=== PATIENT | female | born 1945 | race African-American/Black ===

== ENCOUNTER 2016-12-04 09:47 | Inpatient (IN) ==
[2016-12-04] MEDS ORDERED: SODIUM CHLORIDE 0.9% 1,000 ML IV STA (10:07)
[2016-12-04] MEDS ORDERED: HYDROmorphone 2 MG/1 ML VIAL IV STA (10:07)
[2016-12-04] MEDS ORDERED: ONDANSETRON 4 MG/2 ML VIAL IV STA ×2 (10:07→14:01)
--- NOTE | 2016-12-04 10:15 | Emergency Department Note ---
Trish Alford Hilary, am scribing for, and in the presence of, Sunil Smith MD 10: 12. Sarah Alford James D, MD, personally performed the services described in this documentation, ascribed by Bronwyn Chambers in my presence, and it is both accurate and complete . Arrival - Arrival Chief Complaint: Abdominal / Flank Pain Stated Complaint: stomach pain-severe ED Nursing Triage Note: Pt c/o mid abd cramping since friday, states worse after eating hamburger and moroccan fries yesterday. +n/v. Denies diarrhea. Last BM this morning was normal Mode of Arrival: Wheelchair Limitations: No Limitations Source: Patient, RN Notes Reviewed Time Seen by Provider: 12/04/16 10:03 - History of Present Illness HPI Narrative: Pt is a 71y/o black female presenting to the ED with c/o abdominal cramping which onset 2 days ago. Pt confirms nausea, vomiting and abdominal pain but denies diarrhea or dysuria. She states that it worsened after eating a hamburger and moroccan fries yesterday. Pt has had a bowel obstruction in the past and has PMHx of IDDM and HTN. No other complaints or problems stated in the ED. Patient admits to flatus this morning prior to coming to the ER but has not had any during her stay in the emergency department. Onset (ago): day(s) Consistency: constant Severity: moderate Severity scale (1-10): 4 Quality: cramping Allergies/Adverse Reactions: Allergies Allergy/AdvReac Type Severity Reaction Status Date / Time No Known Allergies Allergy Verified 12/04/16 09:51 Home Medications: Home Medications Medication Instructions Recorded Confirmed Type ALPRAZolam [Xanax] 0.5 mg PO BID PRN 12/02/15 12/04/16 History Famotidine Tab [Pepcid Tab] 40 mg PO BEDTIME 12/02/15 12/04/16 History Linagliptin [Tradjenta] 5 mg PO DAILY 12/02/15 12/04/16 History Losartan/Hydrochlorothiazide 1 each PO DAILY 12/02/15 12/04/16 History [Hyzaar 100-25 Tablet] Metformin HCl 1,000 mg PO BID 12/02/15 12/04/16 History Omeprazole 40 mg PO DAILY 12/02/15 12/04/16 History Simvastatin [Zocor] 20 mg PO BEDTIME 12/02/15 12/04/16 History Topiramate [Topamax] 25 mg PO TID 12/02/15 12/04/16 History Gabapentin 300 mg PO BID 12/04/16 12/04/16 History glipiZIDE [Glipizide ER] 10 mg PO BID 12/04/16 12/04/16 History Review of System - Review of System 12 point system: reviewed and no additional remarkable complaints except as stated - Review of System Constitutional: Present: fever Cardiovascular: Absent: chest pain Gastrointestinal: Present: abdominal pain, nausea, vomiting. Absent: diarrhea Genitourinary female: Absent: dysuria Musculoskeletal: Absent: back pain Medical,Surgical,& Family Hx - Medical History Cardio: History of: Hypertension Endocrine: History of: Diabetes Mellitus (NIDDM) - Social History Smoking Status: Never smoker Frequency of Alcohol Use: None Type of Drug Use: None Exam Physical Examination: GENERAL: This is a well-nourished, well-developed black female in no apparent distress. VITAL SIGNS: Temperature: 99.9 Pulse: 77 Respiratory: 16 Blood Pressure: 146/90 O2SAT: 98 HEENT: Head is normocephalic and atraumatic. Pupils are equally round and reactive to light. Extraocular movement are intact. Oropharynx is benign with moist mucous membranes. NECK: Neck is soft and supple without tenderness. There are no masses. There is no lymphadenopathy. LUNGS: Lungs are clear to auscultation bilaterally. Chest rises symmetrically. There is no chest wall tenderness. CV: Heart is regular rate and rhythm without murmurs, rubs, or gallops. ABDOMEN:Abdomen is soft, tender to palpation in the lower quadrants bilaterally. There are no abnormal masses palpated. There is no organomegaly. Bowel sounds are present and active. SKIN: Skin is warm and dry. No rash. EXTREMITIES: Patient has full range of motion without tenderness. There is no pedal edema. NEUROLOGIC: Awake, alert, and oriented x4. Cranial nerves II through XII are grossly intact. There are no motorsensory deficits. PSYCHIATRIC: Normal affect. Normal mood. Vital Signs: Vital Signs Temperature 99.9 F H 12/04/16 09:48 Pulse Rate 55 L 12/04/16 12:45 Respiratory Rate 18 12/04/16 12:45 Blood Pressure 184/78 12/04/16 12:45 O2 Sat by Pulse Oximetry 96 12/04/16 12:45 Course - Consultations Consultation #1: Discussed with Dr. Bety FOFANA. Patient has what appears to be a small bowel obstruction. Patient will be admitted to his service. Initial orders written for him. He will assume care of the patient upon patient's arrival to the [facility]. Time: 12:51 Results - Labs CBC & BMP: 12/04/16 10:26 12/04/16 10:26 Lab Results: I have reviewed the patients labs Labs: Laboratory Tests 12/04/16 10:26 WBC 9.3 RBC 5.08 Hgb 14.0 Hct 42.7 MCV 84.1 L Neut % (Auto) 92.2 H Lymph % (Auto) 5.8 L [place] % (Auto) 1.4 L Neut # (Auto) 8.6 H Lymph # (Auto) 0.5 L [place] # (Auto) 0.1 L Laboratory Tests 12/04/16 12/04/16 12/04/16 10:26 10:26 11:14 Segmented Neutrophils 93 H Lymphocytes 5 L Potassium 3.2 L Glucose 214 H Total Protein 8.4 H Globulin 4.3 H Albumin/Globulin Ratio 0.9 L Urine Color Yellow Urine Appearance Slightly hazy Urine Urobilinogen < 2.0 H - EKG EKG results: interpreted by ERMD - Impressions EKG: Normal sinus rhythm with rate of 67, nonspecific ST-T wave changes, normal axis. - Diagnostic Findings Procedure: Abdominal x-ray: image reviewed by me (Nonspecific gas pattern, no free air, gas in the rectum.), Chest x-ray: image reviewed by me ( Hyperinflation bilaterally. No pneumothorax, no hemothorax, no pleural effusions, no cardiomegaly.), CT Abdomen and Pelvis: image reviewed by me ( Possible closed loop obstruction versus bowel obstruction.) Disposition Clinical Impression: Abdominal pain, bilateral lower quadrant, Nausea & vomiting, SBO (small bowel obstruction), Hypokalemia Case discussed with: patient, patient's family Disposition: Still a Patient Condition: Stable
[2016-12-04 10:36] LABS: Basophils % 0.2 % (0.0-0.8); Hematocrit 42.7 VOL% (35.7-47.0); Immature Granulocytes % 0.4 %; Immature Granulocytes Absolute 0.04 #; Lymphocytes # 0.5 10*3/uL (1.4-4.0); Lymphocytes % 5.8 % (21.3-54.2); Mean Corpuscular HGB Conc 32.8 GM/DL (32-36); Mean Corpuscular Hemoglobin 28 PG (27-34); Mean Corpuscular Volume 84.1 FL (87-102); Mean Platelet Volume 9.7 FL (9.6-12.0); Monocytes # 0.1 10*3/uL (0.11-0.8); Monocytes % 1.4 % (1.7-12.7); Neutrophils # 8.6 10*3/uL (1.4-7.4); Neutrophils % 92.2 % (38.7-73.9); Platelet Count 257 T/CUMM (130-400); Red Blood Count 5.08 MC/CUMM (3.8-5.5); Red Cell Distribution Width 14.1 % (9.3-17.3); White Blood Count 9.3 T/CUMM (4-12)
[2016-12-04] MEDS ORDERED: ONDANSETRON 4 MG/2 ML VIAL ONE ×2 (10:47→13:59)
[2016-12-04] MEDS ORDERED: HYDROmorphone 2 MG/1 ML VIAL ONE (10:48)
--- NOTE | 2016-12-04 10:49 | EKG Report ---
Stationary ECG Study [facility] Test Date: 12/04/2016 10:49:27 AM Pat Name: AZUL IBARRA Department: Room: Gender: F [employer]: : 1945 Requested by: Sunil Fisher Order Number: [id number] Reading MD: WILFRIDO POWELL Intervals [place] Rate: 67 P: 74 [place]: 176 QRS: 20 QRSD: 92 T: 269 QT: 381 QTc: 396 Interpretive Statements SINUS RHYTHM MODERATE T-WAVE ABNORMALITY, CONSIDER INFERIOR ISCHEMIA Electronically Signed On 12-04-16 14:26:30 CDT by WILFRIDO POWELL [email or web address]
[2016-12-04 11:00] LABS: Hypochromasia 1+; Lymphocytes 5 % (20-55); Microcytosis Slight; Platelet Estimate Normal; Segmented Neutrophils 93 % (50-85); Total Cells Counted 100
--- NOTE | 2016-12-04 11:02 | XRay Report ---
XR abdomen 2V Indication: Abdominal pain. Abdomen 3 views: Couple of air-fluid levels in the left midabdomen are present, without small bowel dilatation. Slightly increased stool in the ascending colon noted as well. Stool and gas extends to the rectum. No free air. No masses or calcifications. Impression: Mild constipation. PROCEDURE INTERPRETED AT [facility] DEPARTMENT OF RADIOLOGY Final Report Signed by: Terence Dawn M.D.
[2016-12-04 11:04] LABS: Alanine Aminotransferase 20 U/L (13-56); Albumin 4.1 G/DL (3.4-5.0); Alkaline Phosphatase 96 U/L (45-117); Aspartate Amino Transferase 15 U/L (0-37); Bilirubin,Total < 0.39 MG/DL (0.2-1.0); Blood Urea Nitrogen 17 MG/DL (7-18); Calcium 9.3 MG/DL (8.5-10.1); Glucose 214 MG/DL (74-106); Osmolality,Calculated 286.4 MOS/KG (273-304); Potassium 3.2 MMOL/L (3.5-5.1); Sodium 140 MMOL/L (136-145); Total Protein 8.4 G/DL (6.4-8.3)
--- NOTE | 2016-12-04 11:04 | XRay Report ---
Referring Physician: Sunil Smith Exam: XR chest 1V portable Date: December 04, 2016 at 10:31 AM Reason: Generalized abdominal pain Comparison: Chest one view portable December 11, 2015 Findings: The cardiac silhouette is normal in size. No focal consolidation, pneumothorax or pleural effusion is identified. No acute osseous process is seen. Impression: No acute cardiopulmonary process is identified. PROCEDURE INTERPRETED AT [facility] DEPARTMENT OF RADIOLOGY Final Report Signed by: Dr. aHris Kent
[2016-12-04 11:26] LABS: Lactic Acid 1.7 MMOL/L (0.4-2.0)
[2016-12-04 11:33] LABS: Amorphous Crystals,Urine Occasional /HPF (Few); Apearance,Urine Slightly Hazy (Clear); Bilirubin,Urine Negative (Negative); Blood, Urine Negative (Negative); Glucose,Urine (UA) Negative (Negative); Ketones,Urine Negative (Negative); Mucus,Urine Occasional /LPF (Occasional); Nitrite,Urine Negative (Negative); Protein,Urine >=500 MG/DL; RBC,Urine 11 /HPF (0-4); Squamous Epithelial Cell,Urine Occasional /HPF (0-10); Urine Color Yellow (Yellow); Urine Specific Gravity 1.023 (1.001-1.035); Urine Urobilinogen < 2.0 EU/DL (0.2-1.0); WBC,Urine <1 /HPF (0-6)
--- NOTE | 2016-12-04 12:47 | CT Report ---
Referring physician: Sunil Smith EXAM: CT abdomen and pelvis with contrast DATE: December 04, 2016 COMPARISON: CT abdomen and pelvis December 11, 2015 REASON: Generalized abdominal pain and pelvic pain TECHNIQUE: Axial images of the abdomen and pelvis were obtained after administration of 80 cc of Omnipaque 350 IV contrast. Oral contrast was also administered. Coronal and sagittal reformatted images were also provided. Total DLP is 418.8 mGy*cm. FINDINGS: Lower thorax: There is minimal dependent atelectasis with within both lower lobes. A calcified granuloma is also seen within the right middle lobe. ABDOMEN: Liver: There is a stable 0.5 cm hypodensity within the posterior right hepatic lobe on image 41. This likely represents a cyst but is too small to well characterize. Gallbladder and bile ducts: The gallbladder is unremarkable. No biliary duct dilatation is present. Pancreas: Unremarkable. Spleen: Unremarkable. Adrenals: Unremarkable. Kidneys and ureters: No hydronephrosis is present. There is 1.5 cm cyst at the upper pole of the right kidney. The ureters are unremarkable as visualized. PELVIS: Bladder: The bladder is poorly distended and difficult to evaluate. Reproductive: The uterus is not identified and may be surgically absent. The ovaries are also not identified. ABDOMEN AND PELVIS: Bowel: The ascending colon and proximal transverse colon contain prominent stool, but the remaining colon is decompressed. There are distended loops of small bowel which are especially prominent within the lower abdomen on the left and near midline. This is concerning for small bowel obstruction and could represents closed loop small bowel obstruction.. Please see images 99 and an 89, series 2. There is decompressed distal small bowel and a suture line at the distal small bowel. The transition point appears to be located anterior to the suture line. There is also questionable mild wall thickening at the distal small bowel on image 110. Appendix: The appendix is unremarkable as visualized. Vasculature: The abdominal aorta is normal in size. There is mild scattered calcified plaque at the arteries. Peritoneum/retroperitoneum: There is minimal free fluid, mainly within the pelvis. This free fluid may be slightly complex Lymph nodes: There are a few upper normal-sized right inguinal lymph nodes, similar to before. Abdominal/pelvic wall: Unremarkable. Bones: There is multilevel degenerative change at the spine. No acute osseous process is seen. IMPRESSION: 1. There are distended loops of small bowel, mainly within the lower abdomen on the left and near midline. This is concerning for small bowel obstruction. This could represent closed loop, and there is a possible transition point near a suture line within the right lower abdomen/upper pelvis. 2. Questionable wall thickening at the distal small bowel. 3. Minimal free fluid, mainly within the pelvis. This fluid may be slightly complex. Follow-up is recommended to confirm resolution. The CT exam was performed using one or more of the following dose reduction techniques: Automated exposure control and adjustment of the mA and/or kV according to patient size. PROCEDURE INTERPRETED AT [facility] DEPARTMENT OF RADIOLOGY Final Report Signed by: Dr. Haris Kent
[2016-12-04] MEDS ORDERED: POTASSIUM CHLORIDE INJ 40 MEQ in DEXTROSE 5% NACL 0.45% 1,000 ML IV SCH ×2 (13:00→14:29)
[2016-12-04] MEDS: DEXT 5% NACL 0.45% KCL 40 MEQ 40 MEQ/1,000 ML BAG IV SCH ×2 (13:33→21:38)
--- NOTE | 2016-12-04 13:57 | General Surg History&Physical ---
Assessment and Plan - Time spent with patient Time spent with patient: Greater than 30 minutes (1) Small bowel obstruction Status: Acute Assessment and plan: I discussed the fact that I feel she has small bowel obstruction and there is a possibility that she has a closed root obstruction that could potentially create compromised small bowel. She has a normal white blood cell count but does have a leftward shift. There is no acidosis. Her exam is rather equivocal. She does not have peritoneal signs or signs of advanced small bowel compromise but as I explained to her there could be a potential for this. For this reason I recommended laparotomy which she is declined at this point. She would like to try conservative treatment initially. For this reason we will hold off on surgery initially and treat her with IV fluids and nasogastric suction. She understands that if her pain does not improve and there are any signs of small bowel compromise that we will need to change our plan and go to surgery and that this could be life-threatening. This was also discussed with her in the room as well. Current Visit: No History of Present Illness Chief complaint: Abdominal pain History of present illness: Ms. Shabazz is a 71 year old female Who for 3 days is had crampy abdominal pain and nausea and vomiting. She has had some passage of flatus and small bowel movements. Pain is moderate in severity and there is a very mild constant component to her pain. The pain is poorly localized and does not radiate. She does not know of any aggravating or alleviating factors. She had a previous small bowel obstruction in the past and this feels like what she had before. Home Medications Medication Instructions Recorded Confirmed Type ALPRAZolam [Xanax] 0.5 mg PO BID PRN 12/02/15 12/04/16 History Famotidine Tab [Pepcid Tab] 40 mg PO BEDTIME 12/02/15 12/04/16 History Linagliptin [Tradjenta] 5 mg PO DAILY 12/02/15 12/04/16 History Losartan/Hydrochlorothiazide 1 each PO DAILY 12/02/15 12/04/16 History [Hyzaar 100-25 Tablet] Metformin HCl 1,000 mg PO BID 12/02/15 12/04/16 History Omeprazole 40 mg PO DAILY 12/02/15 12/04/16 History Simvastatin [Zocor] 20 mg PO BEDTIME 12/02/15 12/04/16 History Topiramate [Topamax] 25 mg PO TID 12/02/15 12/04/16 History Gabapentin 300 mg PO BID 12/04/16 12/04/16 History glipiZIDE [Glipizide ER] 10 mg PO BID 12/04/16 12/04/16 History Allergies Allergy/AdvReac Type Severity Reaction Status Date / Time No Known Allergies Allergy Verified 12/04/16 09:51 Medical,Surgical,& Family Hx - Medical History Cardio: History of: Hypertension Endocrine: History of: Diabetes Mellitus (NIDDM) - Surgical History Abdominal Surgeries: Surgical HX of: Abdominal Surgery - Family History Family History: noncontributory - Social History Smoking Status: Never smoker Frequency of Alcohol Use: None Type of Drug Use: None Exam - Constitutional Vitals: Period Temp Pulse Resp BP Sys/Reyes Pulse Ox Last 24 Hr 59 18 191/64 99 General appearance: no acute distress - Head Head exam: Present: normocephalic - Eye Eye exam: Absent: scleral icterus - ENT Mouth exam: Present: normal voice - Neck Neck exam: Present: trachea midline - Respiratory Respiratory exam: Present: clear to auscultation bilaterally. Absent: accessory muscle use - Cardiovascular Cardiovascular exam: Present: RRR - GI/Abdominal GI/Abdominal exam: Present: distended, tenderness (Mild), soft. Absent: guarding, mass, rebound - Extremities Exam Extremities exam: Absent: edema - Neurological Exam Neurological exam: Present: alert, oriented X3. Absent: motor sensory deficit Speech: Present: normal - Skin Skin exam: Present: normal color - Constitutional Constitutional: Present: weight loss. Absent: chills, fever(s) - EENT Nose, mouth and throat: Absent: dysphagia - Cardiovascular Cardiovascular: Absent: chest pain at rest, chest pain with activity, dyspnea, dyspnea on exertion, syncope - Respiratory Respiratory: Absent: cough, dyspnea, hemoptysis, dyspnea on exertion - Gastrointestinal Gastrointestinal: Present: abdominal pain, bloating, cramping, nausea, vomiting. Absent: diarrhea, hematemesis, hematochezia, melena, jaundice - Genitourinary Genitourinary: Absent: dysuria, hematuria - Musculoskeletal Musculoskeletal: Absent: back pain - Neurological Neurological: Absent: focal weakness, syncope - Endocrine Endocrine: Absent: polyuria Hematologic/Lymphatic: Absent: easy bruising Results - Labs CBC & BMP: 12/04/16 10:26 12/04/16 10:26 Lab Results: I have reviewed the past 24 hour labs - Diagnostic Findings Procedure: Chest x-ray: report reviewed by me, CT Abdomen and Pelvis: image reviewed by me, report reviewed by me
[2016-12-04] MEDS ORDERED: ONDANSETRON 4 MG/2 ML VIAL IV PRN (14:29)
[2016-12-04] MEDS ORDERED: ACETAMINOPHEN 325 MG TABLET PO PRN (14:29)
[2016-12-04] MEDS: HYDROmorphone 2 MG/1 ML VIAL IV PRN ×2 (14:51→19:37)
--- NOTE | 2016-12-04 16:17 | XRay Report ---
Exam: XR chest 1V Indication: NG tube placement Comparison study: 12/04/2016 at 10:33 AM Findings: Lungs are mildly hyperexpanded, similar prior. The esophagogastric tube is noted within the stomach with the tip directed leftward. No focal consolidation, pneumothorax or pleural effusion is identified. Osseous structures appear stable. Impression: Esophagogastric tube within the stomach. Otherwise, no significant change. PROCEDURE INTERPRETED AT [facility] DEPARTMENT OF RADIOLOGY Final Report Signed by: Erickson Ludwig
[2016-12-05] MEDS: DEXT 5% NACL 0.45% KCL 40 MEQ 40 MEQ/1,000 ML BAG IV SCH ×3 (05:46→21:49)
[2016-12-05] MEDS: HYDROmorphone 2 MG/1 ML VIAL IV PRN ×3 (05:49→21:29)
[2016-12-05 07:25] LABS: Basophils % 0.2 % (0.0-0.8); Eosinophils % 0.3 % (0.00-10.9); Hematocrit 41.5 VOL% (35.7-47.0); Hemoglobin 13.3 GM/DL (12.0-16.0); Immature Granulocytes % 0.4 %; Immature Granulocytes Absolute 0.04 #; Lymphocytes % 9.2 % (21.3-54.2); Mean Corpuscular Hemoglobin 28 PG (27-34); Mean Corpuscular Volume 86.1 FL (87-102); Monocytes # 0.6 10*3/uL (0.11-0.8); Monocytes % 5.2 % (1.7-12.7); Neutrophils # 9.5 10*3/uL (1.4-7.4); Neutrophils % 84.7 % (38.7-73.9); Platelet Count 261 T/CUMM (130-400); Red Blood Count 4.82 MC/CUMM (3.8-5.5); Red Cell Distribution Width 14.5 % (9.3-17.3); White Blood Count 11.2 T/CUMM (4-12)
[2016-12-05 07:52] LABS: Calcium 8.6 MG/DL (8.5-10.1); Osmolality,Calculated 288.1 MOS/KG (273-304); Potassium 3.8 MMOL/L (3.5-5.1)
--- NOTE | 2016-12-05 08:16 | XRay Report ---
Two-view abdomen. Indication: Generalized abdominal pain. Comparison: December 04, 2016. The heart is normal in size. There is atelectasis present at each lung base. The distal tip of the nasogastric tube is in the fundus of the stomach. No intra-abdominal organomegaly is seen. There is contrast material present within the right colon, which was not seen on yesterday's plain film, and is suspected to be the result of contrast administered for yesterday's CT. This excludes complete small bowel obstruction. There persists to be dilated loops of small intestine within the abdomen, measuring up to 4 cm in diameter. The degree of distention has worsened. Urinary bladder contrast is noted within normal-appearing urinary bladder. Osseous structures are unremarkable. Impression: Persistent dilated fluid-filled loops of small intestine, with interval worsening in distention. Contrast material from yesterday's CT has reached the right colon, excluding complete obstruction. Partial small bowel obstruction remains a viable consideration. Worsening basilar atelectasis. PROCEDURE INTERPRETED AT [facility] DEPARTMENT OF RADIOLOGY Final Report Signed by: Dr. Dennise Fajardo
--- NOTE | 2016-12-05 09:22 | General Surgery Progress Note ---
Assessment and Plan - Time spent with patient Time spent with patient: Less than 30 minutes (1) Small bowel obstruction Status: Acute Assessment and plan: I discussed the fact that I feel she has small bowel obstruction and there is a possibility that she has a closed root obstruction that could potentially create compromised small bowel. She has a normal white blood cell count but does have a leftward shift. There is no acidosis. Her exam is rather equivocal. She does not have peritoneal signs or signs of advanced small bowel compromise but as I explained to her there could be a potential for this. For this reason I recommended laparotomy which she is declined at this point. She would like to try conservative treatment initially. For this reason we will hold off on surgery initially and treat her with IV fluids and nasogastric suction. She understands that if her pain does not improve and there are any signs of small bowel compromise that we will need to change our plan and go to surgery and that this could be life-threatening. This was also discussed with her in the room as well. 12/05: She appears to have continued small bowel obstruction. She does not have the abdominal pain and tenderness that she had yesterday. She had mild tenderness yesterday and has none this morning. She states that she feels better and is not willing to consider surgery at this point. She wants to try to continue with the nasogastric tube. She understands that she may require laparotomy. Current Visit: No Subjective Patient reports: Present: feels better, pain is less. Absent: nausea, vomiting , shortness of breath, fever Exam - Constitutional Vitals: Period Temp Pulse Resp BP Sys/Reyes Pulse Ox Last 24 Hr 96.6 F-99.5 F 55-69 17-18 125-191/60-84 95-100 General appearance: no acute distress - Head Head exam: Present: normocephalic - Eye Eye exam: Absent: scleral icterus - Neck Neck exam: Present: trachea midline - Respiratory Respiratory exam: Absent: accessory muscle use - GI/Abdominal GI/Abdominal exam: Present: distended, soft. Absent: guarding, tenderness, rebound - Neurological Exam Neurological exam: Present: alert, oriented X3 Results - Labs CBC & BMP: 12/05/16 06:22 12/05/16 06:22 Lab Results: I have reviewed the past 24 hour labs - Diagnostic Findings Procedure: Abdominal Flat/Erect: report reviewed by me
[2016-12-05] MEDS: PANTOPRAZOLE 40 MG TABLET PO SCH (10:14)
[2016-12-06] MEDS: DEXT 5% NACL 0.45% KCL 40 MEQ 40 MEQ/1,000 ML BAG IV SCH ×3 (05:55→19:47)
[2016-12-06] MEDS: HYDROmorphone 2 MG/1 ML VIAL IV PRN ×6 (06:06→19:49)
--- NOTE | 2016-12-06 08:08 | General Surgery Progress Note ---
Assessment and Plan - Time spent with patient Time spent with patient: Less than 30 minutes (1) Small bowel obstruction Status: Acute Assessment and plan: I discussed the fact that I feel she has small bowel obstruction and there is a possibility that she has a closed root obstruction that could potentially create compromised small bowel. She has a normal white blood cell count but does have a leftward shift. There is no acidosis. Her exam is rather equivocal. She does not have peritoneal signs or signs of advanced small bowel compromise but as I explained to her there could be a potential for this. For this reason I recommended laparotomy which she is declined at this point. She would like to try conservative treatment initially. For this reason we will hold off on surgery initially and treat her with IV fluids and nasogastric suction. She understands that if her pain does not improve and there are any signs of small bowel compromise that we will need to change our plan and go to surgery and that this could be life-threatening. This was also discussed with her in the room as well. 12/05: She appears to have continued small bowel obstruction. She does not have the abdominal pain and tenderness that she had yesterday. She had mild tenderness yesterday and has none this morning. She states that she feels better and is not willing to consider surgery at this point. She wants to try to continue with the nasogastric tube. She understands that she may require laparotomy. 5: The patient appears to have continued small bowel obstruction. I have discussed the situation with her and her family once again now that her family is here she is agreeable to proceeding on with laparotomy and lysis of adhesions. Procedure and risks were outlined in detail with her and her family and they wish to proceed. They understand there is a risk of recurrent small bowel obstructions further scarring wound problems infections injury to bowel bladder etc. They understand this and wish to proceed. Current Visit: No Subjective Patient reports: Present: still having pain, no flatus, no bowel movement, nausea, afebrile. Absent: shortness of breath Exam - Constitutional Vitals: Period Temp Pulse Resp BP Sys/Reyes Pulse Ox Last 24 Hr 98.0 F-98.9 F 56-70 17-19 128-157/57-79 96-100 General appearance: no acute distress - Head Head exam: Present: normocephalic - ENT Mouth exam: Present: normal voice - Respiratory Respiratory exam: Absent: accessory muscle use - GI/Abdominal GI/Abdominal exam: Present: distended, soft. Absent: guarding, tenderness, rebound - Neurological Exam Neurological exam: Present: alert, oriented X3 Speech: Present: normal Results - Labs CBC & BMP: 12/05/16 06:22 12/05/16 06:22
[2016-12-06] MEDS ORDERED: ONDANSETRON 4 MG/2 ML VIAL ONE ×2 (10:00→12:05)
[2016-12-06] MEDS ORDERED: ROCURONIUM 100 MG/10 ML VIAL IV ONE (10:00)
[2016-12-06] MEDS ORDERED: SUCCINYLCHOLINE 200 MG/10 ML VIAL ONE (10:00)
[2016-12-06] MEDS ORDERED: GLYCOPYRROLATE 0.4 MG/2 ML VIAL ONE (10:00)
[2016-12-06] MEDS ORDERED: NEOSTIGMINE 10 MG/10 ML VIAL ONE (10:00)
[2016-12-06] MEDS ORDERED: ETOMIDATE 20 MG/10 ML VIAL IV ONE (10:00)
[2016-12-06] MEDS ORDERED: LIDOCAINE 100 MG/5 ML SYRINGE ONE (10:00)
[2016-12-06 10:45] LABS: Apearance,Urine CLEAR (Clear); Bacteria,Urine Occasional /HPF (Few); Bilirubin,Urine Negative (Negative); Blood, Urine Small mg/dL (Negative); Glucose,Urine (UA) Negative (Negative); Ketones,Urine Negative (Negative); Mucus,Urine Occasional /LPF (Occasional); Nitrite,Urine Negative (Negative); Protein,Urine Negative; RBC,Urine 2 /HPF (0-4); Squamous Epithelial Cell,Urine Occasional /HPF (0-10); Urine Color Yellow (Yellow); Urine Specific Gravity 1.009 (1.001-1.035); Urine Urobilinogen < 2.0 EU/DL (0.2-1.0); WBC,Urine <1 /HPF (0-6)
--- NOTE | 2016-12-06 11:03 | Operative Note ---
Date of procedure: 12/06/16 Pre-op diagnosis: Small bowel obstruction Post-op diagnosis: same Procedure: Laparotomy with complete small bowel enteroclysis Findings and technique: After informed consent was obtained the patient was brought to the operating room and placed in supine position. After successful induction of general anesthesia the patient's abdomen was prepped and draped in usual sterile fashion. Incision was made through her midline scar at the umbilicus and this was extended a few centimeters superior to the umbilicus where there was not scar. I entered the peritoneal cavity above the umbilicus and her anterior abdominal wall was free of adhesions. I made about a in 8 cm incision entering the peritoneal cavity without difficulty. The small bowel was dilated proximally and there was a closed loop obstruction with an adhesive band over about a 20 cm segment of bowel. This was released relieving the obstruction. There are extensive other adhesions which were lysed. There were dense bands that I felt were at risk for creating other closed loop obstructions. These were all lysed and the bowel freed from the ligament of Treitz to the ileocecal valve. The bowel appeared to be healthy with no signs of ischemia. The bowel was returned to its normal position and no other pathology noted in the abdomen. I could not see all surfaces of the peritoneal cavity through this small incision. The fascial defect was closed with a running #1 PDS suture and the skin closed with skin clips. Prior to closure check position of the NG tube in the stomach and sponge and instrument counts were correct. Anesthesia: GETA Surgeon / Physician: Shad Albert III. Estimated blood loss: minimal Specimens: none sent Condition: stable Disposition: PACU Results - Labs CBC & BMP: 12/05/16 06:22 12/05/16 06:22 Discharge Plan - Discharge Medications No Action Omeprazole 40 mg PO DAILY Linagliptin [Tradjenta] 5 mg PO DAILY Losartan/Hydrochlorothiazide [Hyzaar 100-25 Tablet] 1 each PO DAILY Topiramate [Topamax] 25 mg PO TID Simvastatin [Zocor] 20 mg PO BEDTIME Metformin HCl 1,000 mg PO BID W/MEALS Famotidine Tab [Pepcid Tab] 40 mg PO BEDTIME ALPRAZolam [Xanax] 0.5 mg PO BID PRN PRN Reason: Anxiety glipiZIDE [Glipizide ER] 10 mg PO BID Gabapentin 300 mg PO BID - Follow Up or Referral - Forms/Instructions
[2016-12-06] MEDS ORDERED: SUGAMMADEX 200 MG/2 ML VIAL IV ONE (11:13)
--- NOTE | 2016-12-06 11:34 | Anesthesia Post-Op ---
Anesthesia Post OP - Post Ansesthetic Evaluation Patient seen in post op: Yes Resp: within normal limits CV: within normal limits Mental: within normal limits Temp: within normal limits [id number]-[id number]: within normal limits Nausea and Vomiting: within normal limits Pain: within normal limits
[2016-12-06] MEDS ORDERED: ACETAMINOPHEN 1,000 MG/100 ML VIAL IV ONE (11:37)
[2016-12-06] MEDS ORDERED: fentaNYL 100 MCG/2 ML VIAL ONE (11:37)
[2016-12-06] MEDS ORDERED: MIDAZOLAM 2 MG/2 ML VIAL ONE (11:37)
[2016-12-06] MEDS ORDERED: SEVOFLURANE 1 UNIT/15 MINUTE INH ONE (11:37)
[2016-12-06] MEDS ORDERED: LACTATED RINGERS 2,000 ML IV ONE (11:37)
[2016-12-06] MEDS ORDERED: HYDROmorphone 2 MG/1 ML VIAL ONE (12:05)
[2016-12-06] MEDS ORDERED: ONDANSETRON 4 MG/2 ML VIAL IV PRN (12:07)
[2016-12-06] MEDS ORDERED: LACTATED RINGERS 1,000 ML IV SCH (13:00)
[2016-12-06] MEDS: PANTOPRAZOLE 40 MG TABLET PO SCH (13:53)
--- NOTE | 2016-12-06 16:04 | Event Note ---
Postop day #0 status post laparotomy with complete enteroclysis. Patient is lying in bed awake. She denies any chest pain, shortness breath, wheeze or cough. NG tube is in place. No nausea or vomiting. Pain is controlled. Objective: Vital signs are stable Heart regular in rhythm Lungs clear to auscultation bilaterally Abdomen: Surgical dressings in place with minimal bloody drainage. Abdomen is soft and appropriately tender. Bowel sounds are present. Extremities calves are soft and nontender without pedal edema. A/p Pt is stable p/o. Continue with pain mgmt. Mobilize as tolerated. NPO and assess NGT output - gradually advance diet when appropriate. SCDs. Start lovenox in am.
[2016-12-07] MEDS: DEXT 5% NACL 0.45% KCL 40 MEQ 40 MEQ/1,000 ML BAG IV SCH ×3 (01:08→05:38)
[2016-12-07] MEDS: HYDROmorphone 2 MG/1 ML VIAL IV PRN ×5 (02:53→20:00)
[2016-12-07 05:28] LABS: Basophils % 0.3 % (0.0-0.8); Eosinophils % 0.2 % (0.00-10.9); Hemoglobin 10.9 GM/DL (12.0-16.0); Immature Granulocytes % 0.4 %; Immature Granulocytes Absolute 0.04 #; Lymphocytes # 0.8 10*3/uL (1.4-4.0); Lymphocytes % 7.7 % (21.3-54.2); Mean Corpuscular HGB Conc 31.1 GM/DL (32-36); Mean Corpuscular Hemoglobin 28 PG (27-34); Mean Corpuscular Volume 88.2 FL (87-102); Mean Platelet Volume 9.9 FL (9.6-12.0); Monocytes # 0.5 10*3/uL (0.11-0.8); Neutrophils # 8.6 10*3/uL (1.4-7.4); Neutrophils % 86.4 % (38.7-73.9); Platelet Count 228 T/CUMM (130-400); Red Blood Count 3.97 MC/CUMM (3.8-5.5); Red Cell Distribution Width 14.6 % (9.3-17.3)
[2016-12-07] MEDS ORDERED: ENOXAPARIN 30 MG/0.3 ML SYRINGE SUBCUT SCH (06:00)
[2016-12-07 08:04] LABS: Calcium 8.3 MG/DL (8.5-10.1); Osmolality,Calculated 280.7 MOS/KG (273-304); Potassium 5.3 MMOL/L (3.5-5.1)
[2016-12-07] MEDS: PANTOPRAZOLE 40 MG TABLET PO SCH (09:34)
[2016-12-07] MEDS: DEXTROSE 5% NACL 0.45% 1,000 ML IV SCH ×2 (09:35→17:06)
--- NOTE | 2016-12-07 10:03 | Event Note ---
12/07/2016 Patient is afebrile and doing fairly well. Moderate discomfort still. Abdomen is of mildly distended but has fairly good bowel sounds. NG tube drainage is minimal. We will try to mobilize the patient let her have some ice chips to keep the NG tube to gravity at this time.
[2016-12-07] MEDS: INSULIN REGULAR 100 UNIT/ML SUBCUT SCH ×2 (16:51→20:03)
[2016-12-08] MEDS: DEXTROSE 5% NACL 0.45% 1,000 ML IV SCH ×4 (00:31→19:32)
[2016-12-08] MEDS: HYDROmorphone 2 MG/1 ML VIAL IV PRN ×5 (00:32→22:59)
[2016-12-08] MEDS: ENOXAPARIN 40 MG/0.4 ML SYRINGE SUBCUT SCH (06:01)
[2016-12-08] MEDS: PANTOPRAZOLE 40 MG TABLET PO SCH (09:02)
[2016-12-08] MEDS: INSULIN REGULAR 100 UNIT/ML SUBCUT SCH ×4 (09:02→23:31)
--- NOTE | 2016-12-08 11:12 | Event Note ---
12/08/2016. Abdomen is soft with some hypoactive bowel sounds. No flatus or bowel movement to date. No complaint of any nausea. She seems to be doing fairly well sitting up at this time. We will keep the NG tube for now the hopes that she will have some flatus and will feel more comfortable get the tube out at that time.
[2016-12-09] MEDS: HYDROmorphone 2 MG/1 ML VIAL IV PRN (03:24)
[2016-12-09] MEDS: DEXTROSE 5% NACL 0.45% 1,000 ML IV SCH ×3 (03:26→17:15)
[2016-12-09] MEDS: ENOXAPARIN 40 MG/0.4 ML SYRINGE SUBCUT SCH (05:43)
--- NOTE | 2016-12-09 08:37 | Event Note ---
She feels well. Her abdomen is benign and she has minimal nasogastric tube output. She has not had a bowel movement or flatus. We will go ahead and remove her NG tube and start her on liquids.
[2016-12-09] MEDS: PANTOPRAZOLE 40 MG TABLET PO SCH (09:02)
[2016-12-09] MEDS: INSULIN REGULAR 100 UNIT/ML SUBCUT SCH ×4 (09:02→20:35)
[2016-12-10] MEDS: DEXTROSE 5% NACL 0.45% 1,000 ML IV SCH ×4 (02:37→18:26)
[2016-12-10] MEDS: ENOXAPARIN 40 MG/0.4 ML SYRINGE SUBCUT SCH (05:52)
--- NOTE | 2016-12-10 07:12 | Event Note ---
She feels well. She is passing flatus but has not had a bowel movement. Her abdomen feels better. I am cutting back her IV fluids and advancing her diet to a soft diet. She may be ready for discharge by tomorrow.
[2016-12-10] MEDS: INSULIN REGULAR 100 UNIT/ML SUBCUT SCH ×4 (08:31→20:10)
[2016-12-10] MEDS: PANTOPRAZOLE 40 MG TABLET PO SCH (08:31)
[2016-12-11] MEDS: ENOXAPARIN 40 MG/0.4 ML SYRINGE SUBCUT SCH (06:24)
[2016-12-11] MEDS ORDERED: MAGNESIUM HYDROXIDE SUSP 30 ML UDCUP PO ONE (07:47)
[2016-12-11] MEDS: PANTOPRAZOLE 40 MG TABLET PO SCH ×2 (07:57→08:02)
[2016-12-11] MEDS: INSULIN REGULAR 100 UNIT/ML SUBCUT SCH ×4 (07:57→23:33)
[2016-12-11] MEDS: DEXTROSE 5% NACL 0.45% 1,000 ML IV SCH (07:59)
--- NOTE | 2016-12-11 08:09 | Event Note ---
Overall she feels better but has not had a bowel movement and feels bloated and nauseous. She did some solid food yesterday. I will check electrolytes and make sure that we do not have postoperative ileus. We will get her up more active today. Once we see return of bowel function I think she should be ready for discharge.
[2016-12-11 12:28] LABS: Albumin 2.9 G/DL (3.4-5.0); Bilirubin,Total 0.5 MG/DL (0.2-1.0); Calcium 8.6 MG/DL (8.5-10.1); Osmolality,Calculated 283.1 MOS/KG (273-304); Potassium 3.1 MMOL/L (3.5-5.1); Total Protein 5.9 G/DL (6.4-8.3)
[2016-12-12] MEDS: HYDROmorphone 2 MG/1 ML VIAL IV PRN ×2 (03:17→11:39)
[2016-12-12] MEDS: DEXTROSE 5% NACL 0.45% 1,000 ML IV SCH ×2 (03:26→06:00)
[2016-12-12] MEDS: ENOXAPARIN 40 MG/0.4 ML SYRINGE SUBCUT SCH (06:01)
[2016-12-12] MEDS: INSULIN REGULAR 100 UNIT/ML SUBCUT SCH ×3 (07:47→15:31)
[2016-12-12] MEDS: PANTOPRAZOLE 40 MG TABLET PO SCH (08:29)
[2016-12-12 09:01] LABS: Calcium 8.2 MG/DL (8.5-10.1); Potassium 3.5 MMOL/L (3.5-5.1)
[2016-12-12] MEDS ORDERED: BISACODYL 10 MG SUPP RECTAL PRN (09:49)
--- NOTE | 2016-12-12 10:04 | Event Note ---
She feels better today. She has less bloating and is passing lots of flatus. We will give a Dulcolax suppository today. Her abdomen is benign. She has a mild hypokalemia which could be contributing to some prolonged ileus postoperatively. We will replace her potassium. She may be ready for discharge later today.
[2016-12-12 12:42] VITALS: BP 165/66
--- NOTE | 2016-12-12 15:04 | Discharge Summary ---
Hospital Course - Hospital Course Hospital Course: Patient is a 71-year-old female admitted with small bowel obstruction for which she was initially reluctant to undergo surgical management. After she failed to improve appropriately, she agreed to surgical intervention and underwent laparotomy with complete small bowel enteroclysis. Postoperatively, her diet was advanced slowly which she tolerated appropriately. Postop day #5, she began to exhibit signs of ileus with abdominal distention and pain and had failed to pass her bowels. After pharmacologic intervention, today she has had significant bowel movement after which she reports improvement in her abdominal distention pain and discomfort. At the time of discharge, she is tolerating activity, oral intake, and voiding and passing her bowels without difficulty. Pain is adequately controlled. She is discharged home in good condition. Diagnosis - Discharge Diagnosis (1) SBO (small bowel obstruction) Status: Acute Discharge Plan - Discharge Data Disposition: Disch To Home/Self Care Condition at Discharge: Stable Discharge Diet: advance to your usual diet Activity: resume usual activities as tolerated, no lifting (> 10 lb) Hygiene: may shower Driving: not until seen by doctor Contact your physician if you experience:: fever over 101, Difficulty voiding, Redness or swelling, Nausea/Vomiting (failure to pass BM), Shortness of breath, Bleeding, pain uncontrolled by pain medications Wound / Dressing Care Instructions: Keep surgical incision clean, dry and covered - Discharge Medications New Hydrocodone/Acetaminophen [Hydrocodon-Acetaminoph 7.5-325] 1 each PO Q4H PRN #30 tablet PRN Reason: Pain Moderate To Severe (4-10) Continue Omeprazole 40 mg PO DAILY Linagliptin [Tradjenta] 5 mg PO DAILY Losartan/Hydrochlorothiazide [Hyzaar 100-25 Tablet] 1 each PO DAILY Topiramate [Topamax] 25 mg PO TID Simvastatin [Zocor] 20 mg PO BEDTIME Metformin HCl 1,000 mg PO BID W/MEALS Famotidine Tab [Pepcid Tab] 40 mg PO BEDTIME ALPRAZolam [Xanax] 0.5 mg PO BID PRN PRN Reason: Anxiety glipiZIDE [Glipizide ER] 10 mg PO BID Gabapentin 300 mg PO BID - Follow Up or Referral Follow Up: Shad Albert III., MD [Physician] - 1 Week - Forms/Instructions Instructions: Bowel Obstruction (DC), Wound Healing and Your Diet (DC), Constipation (DC) Additional Discharge Instructions: Follow up primary care physician 7-10 days. Exam - Constitutional Vitals: Period Temp Pulse Resp BP Sys/Reyes Pulse Ox Last 24 Hr 98.3 F-99 F 63-85 16-18 137-168/66-78 93-100 General appearance: no acute distress - Head Head exam: Present: normal inspection, normocephalic - Eye Eye exam: Absent: conjunctival injection, scleral icterus - Respiratory Respiratory exam: Present: clear to auscultation bilaterally - Cardiovascular Cardiovascular exam: Present: regular rate and rhythm - GI/Abdominal GI/Abdominal exam: Present: normal bowel sounds, tenderness (Appropriate postoperative), soft. Absent: distended, firm - Extremities Exam Extremities exam: Absent: calf tenderness, edema - Neurological Exam Neurological exam: Present: alert, oriented X3 - Psychiatric Psychiatric exam: Present: normal affect, normal mood - Skin Skin exam: Present: normal color, warm Discharge Results Labs on day of discharge: Labs from last 24 hours 12/12/16 12/12/16 12/12/16 11:26 08:24 06:39 Sodium 143 Potassium 3.5 Chloride 104 Carbon Dioxide 31 Anion Gap 11.5 BUN 6 L Creatinine 0.70 GFR Calculation 95 BUN/Creatinine Ratio 8.00 Glucose 170 H POC Glucose 214 H 155 H Calculated Osmolality 286.0 Calcium 8.2 L 12/11/16 12/11/16 19:02 15:20 Sodium Potassium Chloride Carbon Dioxide Anion Gap BUN Creatinine GFR Calculation BUN/Creatinine Ratio Glucose POC Glucose 85 252 H Calculated Osmolality Calcium - Imaging and Cardiology Procedure: Abdominal x-ray: image reviewed by me, report reviewed by me, Chest x -ray: image reviewed by me, report reviewed by me, CT Abdomen and Pelvis: image reviewed by me, report reviewed by me DS: Provider Date of admission: 12/04/16 12:51 Primary care physician: . No PCP Attending physician on admission: Shad Albert III., Consults: 12/04/16 14:39 Consult to Pharmacy [CONS] Routine Reason for Pharmacy Consult: Adjust Meds Renal Funct Discharging clinician: Teagan Marie PA-C
== END 2016-12-12 16:45 | disposition home or self-care (01) | DRG 336 ==
LOC: N.ED 09:47 → N.EDINP 12:51 → N.5E 14:27
PROVIDERS: ADMIT Surgery; ATTEND Surgery